=== PATIENT | male | born 1950 | race Caucasian/White ===

== ENCOUNTER 2020-06-23 23:08 | Emergency (ER) | payer OTHER ==
[~2020-06-23] VITALS: Ht 180.3 cm; Wt 97.7 kg
[2020-06-23 23:20] VITALS: BP 137/79
--- NOTE | 2020-06-23 23:24 | PHYS DOC ---
Past History Past Medical History: Anemia, CAD, Cancer, Diabetes, GERD, Kidney Stones, Renal Disease Past Medical History Hearing loss Past Surgical History: Other General Adult EDM: Chief Complaint: ABDOMINAL PAIN HPI: HPI: ".. .I am having really bad abdomen.. right here in the pit of my stomach. and right upper... .. I worried.. I do have metastatic melanoma and I am on special immune chemotherapy at ... On a special program to cause my body to attack the melanoma cells. .. It is freddie of experimental.. but I started hurting really bad tonight..." " They say I got some spots in my Liver.. I got follow up at coming this week for more chemo or immuno therapy and MRI... 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 Patient denies any intake of bad food. Patient denies any recent tarry stools. Patient has had history of have GERD and gastritis. Patient currently followed at oncology for treatment of metastatic melanoma on a experimental protocol. No history of trauma. No history of sick ill contacts. No recent travel outside the [place] area. Pt., follows with Dr. Nunez as a local primary. Review of Systems: Review of Systems: Constitutional: Denies fever or chills Eyes: Denies change in visual acuity HENT: Denies nasal congestion or sore throat Respiratory: Denies cough or shortness of breath Cardiovascular: Denies chest pain or edema GI: Complains of severe epigastric and right upper quadrant abdominal pain, nausea. Denies, vomiting, bloody stools or diarrhea : Denies dysuria Musculoskeletal: Denies back pain or joint pain Integument: Denies rash Neurologic: Denies headache, focal weakness or sensory changes Endocrine: Denies polyuria or polydipsia Lymphatic: Denies swollen glands Psychiatric: Denies depression or anxiety Family History: Family History: Noncontributory to presentation Current Medications: Current Meds: See nursing for home meds Allergies: Allergies: No known drug allergies Physical Exam: PE: Constitutional: in moderately acute distress, non-toxic appearance. Rate epigastric pain as severe. HENT: Normocephalic, atraumatic, bilateral external ears normal, oropharynx andrade st, no oral exudates, nose normal. [] Eyes: PERRLA, EOMI, conjunctiva normal, no discharge. Glasses Neck: Normal range of motion, no tenderness, supple, no stridor. [] Cardiovascular: Tachycardia heart rate regular rhythm, no murmur, PMI slightly to the left Lungs & Thorax: Bilateral breath sounds equal at apex on auscultation [] Abdomen: Bowel sounds decreased, soft, gastric and right upper quadrant tenderness, no masses, no pulsatile masses. Patient declined rectal exam at this time. Obese. Rebound to right upper quadrant. Surgical scars. Skin: Warm, dry, no erythema, no rash. [] Back: No tenderness, no CVA tenderness. [] Extremities: No tenderness, no cyanosis, no clubbing, ROM intact, no edema. No specific psoas sign. Neurologic: Alert and oriented X 3, normal motor function, normal sensory function, no focal deficits noted. [] Psychologic: Affect anxious, judgement normal, mood normal. [] EKG: EKG: My interpretation EKG shows a sinus rhythm at 96. Does have prolonged NM interval and abnormal P waves as well as a right bundle branch block. Does appear to be an abnormal EKG. But no findings of acute STEMI with contralateral changes. [] Radiology/Procedures: Radiology/Procedures: [[place] [address] IMAGING REPORT Signed PATIENT: NIKKI ELAM ACCOUNT: [id number] : 1950 LOCATION: ER AGE: 69 SEX: M EXAM STATUS: REG ER ORD. PHYSICIAN: TATA FROST MD REASON: pain PROCEDURE: ACUTE ABDOMEN SERIES EXAM: Frontal chest with two-view abdomen. HISTORY: Abdominal pain. COMPARISON: None. FINDINGS: The left hemidiaphragm is moderately elevated. There is mild left basilar atelectasis. There is no pneumothorax or clear pleural effusion. The heart is not enlarged. There is a mild to moderate thoracic dextroscoliosis. A calculus in the right renal lower pole measures 19 x 14 mm. There are no clear ureteral calculi. There are no distended small bowel loops. There is gas distally. Embolization coils are noted in the right upper quadrant. There are surgical clips in the right upper and lower quadrants and right hemipelvis. IMPRESSION: 1. 19 mm right renal calculus. No clear ureteral calculi. Electronically signed by: Sandra Mcgee MD (06/24/2020 12:46 AM) [facility] DICTATED AND SIGNED BY: MAXIMILIANO MCGEE MD DATE: 06/24/20 0046 CC: ANA MARIA NUNEZ MD; TATA FROST MD ~ ][address] [address] IMAGING REPORT Signed PATIENT: NIKKI ELAM ACCOUNT: [id number] : 1950 LOCATION: ER AGE: 69 SEX: M EXAM STATUS: REG ER ORD. PHYSICIAN: TATA FROST MD REASON: ?? PROCEDURE: CT ABD PELV W/ORAL&IV CONTRAST EXAM: CT ABDOMEN/PELVIS WITH CONTRAST. HISTORY: Abdominal pain. TECHNIQUE: Computed tomography of the abdomen and pelvis was performed after the intravenous administration of iodinated contrast. One or more of the following individualized dose reduction techniques were utilized for this examination: 1. Automated exposure control. 2. Adjustment of the mA and/or kV according to patient size. 3. Use of iterative reconstruction technique. COMPARISON: None. FINDINGS: Lung windows through the visualized portions of the bases reveal moderate elevation of the left hemidiaphragm with associated atelectasis. Low-attenuation to the right of the distal esophagus likely reflects a small amount of fluid in a small hiatal hernia. Bone windows reveal no suspicious lesions. A benign cyst in the right hepatic lobe measures 2.8 cm. The gallbladder is surgically absent. There are embolization coils in the gastroduodenal artery. The pancreas, adrenal glands and spleen are unremarkable. A calculus in the right renal lower pole measures 14 x 9 mm. Multiple additional bilateral renal calculi measure up to 4 mm in the right upper pole. There are multiple bilateral renal cysts measuring up to 4.9 cm at the right upper pole. There are no ureteral calculi. There are no pathologically enlarged lymph nodes. The prostate is moderately enlarged. There is no evidence of appendicitis. There is no small bowel obstruction. There is mild stranding about the proximal duodenum and colonic hepatic flexure. IMPRESSION: 1. Mild stranding about the proximal duodenum. Correlate for duodenitis or peptic ulcer disease. 2. Wall thickening of the distal esophagus. Correlate for esophagitis. 3. Bilateral renal calculi measure up to 14 mm on the right. Electronically signed by: Sandra Mcgee MD (06/24/2020 5:08 AM) [facility] DICTATED AND SIGNED BY: MAXIMILIANO MCGEE MD DATE: 06/24/20 9482 CC: ANA MARIA NUNEZ MD; TATA FROST MD ~ Heart Score: HEART Score for Chest Pain: HEART Score for Chest Pain Response (Comments) Value History Moderately Suspicious 1 ECG Nonspecific Repolarizatio 1 Age > 65 2 Troponin < Normal Limit 0 Total 4 Risk Factors: Risk Factors: DM, Current or recent (<one month) smoker, HTN, HLP, family history of CAD, obesity. Risk Scores: Score 0 - 3: 2.5% MACE over next 6 weeks - Discharge Home Score 4 - 6: 20.3% MACE over next 6 weeks - Admit for Clinical Observation Score 7 - 10: 72.7% MACE over next 6 weeks - Early Invasive Strategies Course & Med Decision Making: Course & Med Decision Making Pertinent Labs and Imaging studies reviewed. (See chart for details) Patient received fluid bolus as well as morphine for epigastric pain. Reviewed at length patient's x-rays and CT findings. At time of discharge patient reported marked relief of pain. Declined transfer to . Declined admission. Will start patient on Pepcid 20 mg twice a day. Must follow-up with primary as well as keeping follow-ups at oncology. Patient films were clouded to . Patient elected discharge home and exhibited UCAR capacity. Patient warned if he develops any tarry or dark stools must present to a hospital that has GI specialty availability in the event that he may need emergent EGD and possible treatment of a bleeding ulcer. Patient encouraged to remain on a clear fluid diet for the next 24 hours. Call oncology for possible earlier follow-up. Follow-up with Dr. Nunez. Patient continue his tramadol as needed for pain. Avoid any NSAIDs. Impression: 1. Abdomen pain epigastric and right upper quadrant 2. CT findings consistent with proximal duodenitis, gastritis and esophageal inflammation 3. History of metastatic melanoma cancer-currently on immunotherapy protocol at oncology 4. Anemia hemoglobin 11.6, with elevated segs at 88, MCV 105 5. Mild elevation in AST 55 ALT 77, alk phos of 131 6. Renal calculi [] Dragon Disclaimer: Dragon Disclaimer: This electronic medical record was generated, in whole or in part, using a voice recognition dictation system. Departure Departure: Disposition: 01 DC HOME SELF CARE/HOMELESS Condition: STABLE Referrals: ANA AMRIA NUNEZ MD (PCP) Scripts Famotidine (PEPCID) 20 Mg Tablet 20 MG PO BID for gastritis for 30 Days, #60 TAB Prov: ATTA FROST MD 06/24/20 Martina Disclaimer This chart was dictated in whole or in part using Voice Recognition software in a busy, high-work load, and often noisy Emergency Department environment. It may contain unintended and wholly unrecognized errors or omissions. Dragon Disclaimer This chart was dictated in whole or in part using Voice Recognition software in a busy, high-work load, and often noisy Emergency Department environment. It may contain unintended and wholly unrecognized errors or omissions. TATA FROST MD Jun 23, 2020 23:24
[2020-06-23] MEDS ORDERED: ONDANSETRON PF 4 MG/2 ML VIAL. IVP ONE (23:30)
[2020-06-23] MEDS ORDERED: IV RINGERS SOLUTION,LACTATED 1,000 ML IV SCH (23:30)
[2020-06-23] MEDS ORDERED: FAMOTIDINE 20 MG/2 ML VIAL IVP ONE (23:30)
[2020-06-24 00:10] LABS: BASO % 1 % (0-3); EOS % 0 % (0-3); HEMATOCRIT 35.9 % (39.0-53.0); HEMOGLOBIN 11.6 g/dL (13.0-17.5); LYMPH # 0.3 x10^3/uL (1.0-4.8); LYMPH % 5 % (24-48); MEAN CORPUSCULAR HEMOGLOBIN 34 pg (25-35); MEAN CORPUSCULAR HGB CONC 32 g/dL (31-37); MEAN CORPUSCULAR VOLUME 105 fL (79-100); MONO # 0.5 x10^3/uL (0.0-1.1); MONO % 7 % (0-9); NEUT # 6.4 x10^3uL (1.8-7.7); NEUT % 87 % (31-73); PLATELET COUNT 197 x10^3/uL (140-400); RED BLOOD COUNT 3.42 x10^6/uL (4.30-5.70); RED CELL DISTRIBUTION WIDTH 16.1 % (11.5-14.5); WHITE BLOOD COUNT 7.4 x10^3/uL (4.0-11.0)
[2020-06-24 00:20] LABS: CALCIUM 9.1 mg/dL (8.5-10.1); CREATININE 1.5 mg/dL (0.7-1.3); GFR 46.5; POTASSIUM 3.7 mmol/L (3.5-5.1)
[2020-06-24 00:25] LABS: ALBUMIN 3.2 g/dL (3.4-5.0); DIRECT BILIRUBIN 0.3 mg/dL (0.0-0.2); TOTAL BILIRUBIN 0.5 mg/dL (0.2-1.0)
[2020-06-24 00:38] LABS: % BANDS 1 % (0-9); % LYMPHS 4 % (24-48); % MONOS 7 % (0-10); % SEGS 88 % (35-66); PLT ESTIMATE ADEQUATE (ADEQUATE)
[2020-06-24 00:39] LABS: HYPOCHROMIA SLIGHT
--- NOTE | 2020-06-24 00:49 | RAD ---
EXAM: Frontal chest with two-view abdomen. HISTORY: Abdominal pain. COMPARISON: None. FINDINGS: The left hemidiaphragm is moderately elevated. There is mild left basilar atelectasis. There is no pneumothorax or clear pleural effusion. The heart is not enlarged. There is a mild to moderate thoracic dextroscoliosis. A calculus in the right renal lower pole measures 19 x 14 mm. There are no clear ureteral calculi. There are no distended small bowel loops. There is gas distally. Embolization coils are noted in the right upper quadrant. There are surgical clips in the right upper and lower quadrants and right hemipelvis. IMPRESSION: 1. 19 mm right renal calculus. No clear ureteral calculi. Electronically signed by: Sandra Mcgee MD (06/24/2020 12:46 AM) [facility]
[2020-06-24] MEDS ORDERED: ONDANSETRON PF 4 MG/2 ML VIAL. IVP ONE (01:30)
--- NOTE | 2020-06-24 02:00 | EKG ---
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
[2020-06-24] MEDS ORDERED: MORPHINE SULFATE 10 MG/ML SYRINGE. SQ ONE ×2 (02:45)
[2020-06-24] MEDS ORDERED: IOHEXOL 240 MG/ML 50ML VIAL. PO ONE (03:15)
[2020-06-24] MEDS ORDERED: IOHEXOL 300 MG/ML 75 ML VIAL. IV ONE (03:15)
[2020-06-24] MEDS ORDERED: CONTRAST GIVEN. MC PRN (03:15)
[2020-06-24 03:26] LABS: BARBITURATES NEG (NEG); BENZODIAZEPINES NEG (NEG); CANNABINOIDS NEG (NEG); COCAINE NEG (NEG); METHADONE NEG (NEG); OPIATES POS (NEG); PHENCYCLIDINE NEG (NEG)
[2020-06-24 03:31] LABS: BACTERIA,URINE 0 /HPF (0-FEW); BILIRUBIN,URINE MOD (NEG); CLARITY,URINE CLEAR; COLOR,URINE YELLOW; GLUCOSE,URINE NEG (NEG); NITRITE,URINE NEG (NEG); SQUAMOUS EPITHELIAL CELL,UR OCC /LPF; WBC,URINE RARE /HPF (0-4)
[2020-06-24 03:35] LABS: AMPHETAMINE/METHAMPHETAMINE NEG (NEG)
--- NOTE | 2020-06-24 05:10 | RAD ---
EXAM: CT ABDOMEN/PELVIS WITH CONTRAST. HISTORY: Abdominal pain. TECHNIQUE: Computed tomography of the abdomen and pelvis was performed after the intravenous administration of iodinated contrast. One or more of the following individualized dose reduction techniques were utilized for this examination: 1. Automated exposure control. 2. Adjustment of the mA and/or kV according to patient size. 3. Use of iterative reconstruction technique. COMPARISON: None. FINDINGS: Lung windows through the visualized portions of the bases reveal moderate elevation of the left hemidiaphragm with associated atelectasis. Low-attenuation to the right of the distal esophagus likely reflects a small amount of fluid in a small hiatal hernia. Bone windows reveal no suspicious lesions. A benign cyst in the right hepatic lobe measures 2.8 cm. The gallbladder is surgically absent. There are embolization coils in the gastroduodenal artery. The pancreas, adrenal glands and spleen are unremarkable. A calculus in the right renal lower pole measures 14 x 9 mm. Multiple additional bilateral renal calculi measure up to 4 mm in the right upper pole. There are multiple bilateral renal cysts measuring up to 4.9 cm at the right upper pole. There are no ureteral calculi. There are no pathologically enlarged lymph nodes. The prostate is moderately enlarged. There is no evidence of appendicitis. There is no small bowel obstruction. There is mild stranding about the proximal duodenum and colonic hepatic flexure. IMPRESSION: 1. Mild stranding about the proximal duodenum. Correlate for duodenitis or peptic ulcer disease. 2. Wall thickening of the distal esophagus. Correlate for esophagitis. 3. Bilateral renal calculi measure up to 14 mm on the right. Electronically signed by: Sandra Mcgee MD (06/24/2020 5:08 AM) [facility]
[2020-06-24] MEDS ORDERED: FAMO-63 PO (06:26)
== END 2020-06-24 06:39 | disposition home or self-care (01) ==
LOC: ER 23:08
DX: N20.0 Calculus of kidney (principal); R10.13 Epigastric pain; R10.11 Right upper quadrant pain; K29.70 Gastritis, unspecified, without bleeding; K29.80 Duodenitis without bleeding; D64.9 Anemia, unspecified; R79.89 Other specified abnormal findings of blood chemistry; R11.0 Nausea; K21.9 Gastro-esophageal reflux disease without esophagitis; I25.10 Atherosclerotic heart disease of native coronary artery without angina pectoris; E11.9 Type 2 diabetes mellitus without complications; C79.89 Secondary malignant neoplasm of other specified sites; Z87.442 Personal history of urinary calculi; Z85.9 Personal history of malignant neoplasm, unspecified
CPT/HCPCS: 36415; 74022; 74177; 80048; 80076; 80307; 81001; 82150; 82550; 83690; 84484; 85007; 85025; 85610; 85730; 93005; 96361; 96372; 96374; 96375; 96376; 99285; J2270; J2405; Q9966; Q9967; J3490; J7120

== ENCOUNTER 2021-07-05 23:18 | Emergency (ER) | payer OTHER, MEDICARE ==
[~2021-07-05] VITALS: Ht 177.8 cm; Wt 97.7 kg
[~2021-07-05 23:18] MED LIST: FAMO-63 PO
--- NOTE | 2021-07-05 23:20 | PHYS DOC ---
Past History Past Medical History: Anemia, CAD, Cancer, Diabetes, GERD, Kidney Stones, Renal Disease Additional Past Medical Histor: CLL Past Surgical History: Other Additional Past Surgical Histo: right lung resection Alcohol Use: None Adult General HPI HPI Patient is a 70-year-old male with a past medical history significant for metastatic melanoma to the liver who presents to the emergency department with a chief complaint of shortness of breath over the last couple of days and bilateral lower extremity swelling which seems worse than usual. States that his last chemotherapy session was 2 weeks ago but this weeks was held off due to some elevation in liver enzymes. Patient gets his care at . Denies headache, changes in vision, pain or trouble swallowing, neck pain, chest pain, abdominal pain but does have some abdominal bloating. Denies any nausea, vomiting, diarrhea, dysuria, hematuria or blood in the stool. Denies any recent travel, traumas or known ill contacts. Review of Systems Review of Systems Review of systems otherwise unremarkable except noted in HPI Allergies Allergies Allergies Coded Allergies Type Severity Reaction Last Updated Verified No Known Drug Allergies 06/24/20 No Physical Exam Physical Exam Constitutional: Well developed, well nourished, no acute distress, non-toxic appearance. [] HENT: Normocephalic, atraumatic, bilateral external ears normal, oropharynx moist, no oral exudates, nose normal. [] Eyes: PERRLA, EOMI, scleral icterus, no discharge. [] Neck: Normal range of motion, no tenderness, supple, no stridor. [] Cardiovascular: Sinus tachycardia Lungs & Thorax: Bilateral global scant rhonchi, with no respiratory distress Abdomen: soft, no tenderness, no masses, no pulsatile masses. [] Skin: Warm, dry, no erythema, no rash. [] Back: No tenderness, no CVA tenderness. [] Extremities: No tenderness, no cyanosis, no clubbing, ROM intact, no edema. [] Neurologic: Alert and oriented X 3, normal motor function, normal sensory function, able to sit, stand and walk without issue no focal deficits noted. [] Psychologic: Affect normal, judgement normal, mood normal. [] EKG EKG [] Radiology/Procedures Radiology/Procedures [] CTA CHEST_ABDOMEN_AND PELVIS Clinical Indication: SOB, cancer / Spl. Instructions: / History: Comparison: CT abdomen and pelvis with contrast, June 24, 2020. Technique: Helical CT of the chest was performed after the administration of 100 cc of Omnipaque 350 intravenous contrast according to PE protocol. Axial and coronal reconstructions were obtained. 3-D MIP images were constructed to better evaluate the pulmonary arteries. Helical CT imaging continued in the abdomen and pelvis. Findings: Pulmonary arteries are adequately opacified. There is no evidence of pulmonary embolism. There is no thoracic aortic dissection. The great vessels are normal caliber. There is right chest Port-A-Cath. Thyroid is symmetric. There is no adenopathy in the chest. Coronary artery disease. The cardiac size is normal, no pericardial effusion. There is severe elevation of the left hemidiaphragm. There is atelectasis or scarring in the bilateral lung bases. The central airways are patent. There is no pleural effusion. There is a groundglass opacity in the posterior left lower lobe measuring 1.7 cm. There are numerous hypodense lesions of the liver. These are new from prior study. There is hypertrophy of the left hepatic lobe. There are cirrhotic changes. There is moderate abdominal and pelvic ascites. Ascites is most apparent left subphrenic. Cholecystectomy. The spleen size is normal. The pancreas, adrenal glands, and abdominal aorta caliber are normal. There are nonobstructing right renal calculi, largest measures 11 mm. There are bilateral renal cysts that do not require follow-up. There is no hydronephrosis. The stomach is unremarkable. There is no dilated small bowel. No colon wall thickening is identified. There is no abdominal adenopathy. There is moderate anasarca. The urinary bladder contains a small amount of contrast inferiorly. There is no wall thickening. Prostate size upper limits of normal. No acute bone abnormality. IMPRESSION: 1. There is no pulmonary embolus. 2. Hepatic cirrhosis. There are numerous hypodense lesions of the liver, new from prior study. Metastatic disease or primary malignancy are not excluded. If diagnosis is not known, recommend MR abdomen with and without contrast. 3. Groundglass nodule in the posterior left lower lobe may be infectious/inflammatory. 4. Moderate abdominal ascites. 5. Moderate anasarca. 6. Nonobstructing right renal calculi. Heart Score C/O Chest Pain: No Risk Factors: Risk Factors: DM, Current or recent (<one month) smoker, HTN, HLP, family history of CAD, obesity. Risk Scores: Risk Factors: DM, Current or recent (<one month) smoker, HTN, HLP, family history of CAD, obesity. Course & Med Decision Making Course & Med Decision Making Patient is a 70-year-old male who presents to the emergency department with a chief complaint of shortness of breath for couple of days currently on chemotherapy for metastatic melanoma Vital signs notable for sinus tachycardia and hypothermia. Physical exam noted above. Patient placed on the monitor with IV access established x2. Started on IV fluid resuscitation. Started on antibiotics and blood cultures obtained given patient's immunosuppressed status and SIRS criteria. Possible site of infection with a groundglass opacity in the left lower lobe seen on CT. CT also notable for some anasarca, probable mets and liver disease. Laboratory analysis notable for hyponatremia, hyperkalemia, elevated anion gap and decreased bicarb, elevated BUN and creatinine, leukocytosis, macrocytic anemia, elevated bilirubin, elevated LFTs and alk phos. Given findings, patient critically ill with probable sepsis and possible site in the lung. Discussed all findings with family and recommended admission for continued evaluation and treatment. Family requested to be transferred to . Critical care time 60 minutes Dragon Disclaimer Dragon Disclaimer This electronic medical record was generated, in whole or in part, using a voice recognition dictation system. Departure Departure: Impression: Primary Impression: Sepsis Additional Impressions: Shortness of breath Hyponatremia Hyperkalemia Elevated LFTs Bilirubinemia Disposition: 02 [facility] Admitting Physician: Other Condition: STABLE Referrals: ANA MARIA GRESHAM MD (PCP) Problem Qualifiers ANGELIQUE YEAGER MD Jul 05, 2021 23:20
[2021-07-05] MEDS ORDERED: CEFEPIME HCL 2 GM in IV NORMAL SALINE 100ML 100 ML IV ONE (23:45)
[2021-07-05] MEDS ORDERED: CONTRAST GIVEN. MC PRN (23:45)
[2021-07-05] MEDS ORDERED: IOHEXOL 350 MG/ML 100 ML VIAL. IV ONE (23:45)
[2021-07-06] MEDS ORDERED: IV RINGERS SOLUTION,LACTATED 1,000 ML IV ONE (00:15)
[2021-07-06 00:51] LABS: BASO # 0.7 x10^3/uL (0.0-0.2); BASO % 2 % (0-3); EOS # 0.2 x10^3/uL (0.0-0.7); EOS % 1 % (0-3); HEMATOCRIT 24.9 % (39.0-53.0); HEMOGLOBIN 7.9 g/dL (13.0-17.5); LYMPH # 17.7 x10^3/uL (1.0-4.8); LYMPH % 49 % (24-48); MEAN CORPUSCULAR HEMOGLOBIN 34 pg (25-35); MEAN CORPUSCULAR HGB CONC 32 g/dL (31-37); MEAN CORPUSCULAR VOLUME 108 fL (79-100); MONO # 1.9 x10^3/uL (0.0-1.1); MONO % 5 % (0-9); NEUT # 15.4 x10^3uL (1.8-7.7); NEUT % 43 % (31-73); PLATELET COUNT 72 x10^3/uL (140-400); RED BLOOD COUNT 2.31 x10^6/uL (4.30-5.70); RED CELL DISTRIBUTION WIDTH 21.1 % (11.5-14.5)
[2021-07-06 01:10] LABS: % BANDS 1 % (0-9); % LYMPHS 53 % (24-48); % MONOS 2 % (0-10); % SEGS 44 % (35-66)
[2021-07-06 01:12] LABS: ANISOCYTOSIS SLIGHT; MICROCYTOSIS SLIGHT; PLT ESTIMATE DECREASED (ADEQUATE)
[2021-07-06 01:19] LABS: ALBUMIN 2.5 g/dL (3.4-5.0); CALCIUM 8.6 mg/dL (8.5-10.1); GFR 33.3; TOTAL BILIRUBIN 5.6 mg/dL (0.2-1.0); TOTAL PROTEIN 5.1 g/dL (6.4-8.2)
[2021-07-06 01:26] LABS: POTASSIUM 6.1 mmol/L (3.5-5.1)
[2021-07-06] MEDS ORDERED: FUROSEMIDE 40 MG/4 ML VIAL IVP ONE (01:30)
[2021-07-06] MEDS ORDERED: IV NORMAL SALINE 100ML 100 ML ONE (01:30)
[2021-07-06] MEDS ORDERED: CEFEPIME HCL 2 GM VIAL IV ONE (01:30)
[2021-07-06] MEDS ORDERED: MORPHINE SULFATE 4 MG/ML DISP.SYRIN. ONE (01:39)
[2021-07-06] MEDS ORDERED: MORPHINE SULFATE 4 MG/ML DISP.SYRIN. IV ONE (01:45)
[2021-07-06] MEDS ORDERED: ONDANSETRON PF 4 MG/2 ML VIAL. IVP ONE (01:45)
--- NOTE | 2021-07-06 02:03 | RAD ---
PQRS Compliance Statement: One or more of the following individualized dose reduction techniques were utilized for this examinat ion: 1. Automated exposure control 2. Adjustment of the mA and/or kV according to patient size 3. Use of iterative reconstruction technique CTA CHEST_ABDOMEN_AND PELVIS Clinical Indication: SOB, cancer / Spl. Instructions: / History: Comparison: CT abdomen and pelvis with contrast, June 24, 2020. Technique: Helical CT of the chest was performed after the administration of 100 cc of Omnipaque 350 intravenous contrast according to PE protocol. Axial and coronal reconstructions were obtained. 3- D MIP images were constructed to better evaluate the pulmonary arteries. Helical CT imaging continued in the abdomen and pelvis. Findings: Pulmonary arteries are adequately opacified. There is no evidence of pulmonary embolism. There is no thoracic aortic dissection. The great vessels are normal caliber. There is right chest Po rt-A-Cath. Thyroid is symmetric. There is no adenopathy in the chest. Coronary artery disease. The ca rdiac size is normal, no pericardial effusion. There is severe elevation of the left hemidiaphragm. There is atelectasis or scarring in the bilatera l lung bases. The central airways are patent. There is no pleural effusion. There is a groundglass op acity in the posterior left lower lobe measuring 1.7 cm. There are numerous hypodense lesions of the liver. These are new from prior study. There is hypertrop hy of the left hepatic lobe. There are cirrhotic changes. There is moderate abdominal and pelvic asci mery. Ascites is most apparent left subphrenic. Cholecystectomy. The spleen size is normal. The pancre as, adrenal glands, and abdominal aorta caliber are normal. There are nonobstructing right renal calc carina, largest measures 11 mm. There are bilateral renal cysts that do not require follow-up. There is no hydronephrosis. The stomach is unremarkable. There is no dilated small bowel. No colon wall thickening is identified. There is no abdominal adenopathy. There is moderate anasarca. The urinary bladder contains a small amount of contrast inferiorly. There is no wall thickening. Prostate size upper limits of normal. No acute bone abnormality. IMPRESSION: 1. There is no pulmonary embolus. 2. Hepatic cirrhosis. There are numerous hypodense lesions of the liver, new from prior study. Metas tatic disease or primary malignancy are not excluded. If diagnosis is not known, recommend MR abdomen with and without contrast. 3. Groundglass nodule in the posterior left lower lobe may be infectious/inflammatory. 4. Moderate abdominal ascites. 5. Moderate anasarca. 6. Nonobstructing right renal calculi. Electronically signed by: Gopi Conley MD (07/06/2021 2:01 AM) [facility]
[2021-07-06] MEDS ORDERED: CALCIUM GLUCONATE 1,000 MG/10 ML VIAL IV ONE (03:00)
[2021-07-06] MEDS ORDERED: SODIUM BICARB ADULT 8.4% 50 MEQ/50 ML DISP.SYRIN. IV ONE (03:00)
[2021-07-06] MEDS ORDERED: ALBUMIN HUMAN 25% 50 ML IV ONE (03:00)
[2021-07-06 03:05] LABS: BACTERIA,URINE 0 /HPF (0-FEW); BILIRUBIN,URINE NEG (NEG); CLARITY,URINE CLEAR; COLOR,URINE YELLOW; GLUCOSE,URINE NEG (NEG); NITRITE,URINE NEG (NEG); RBC,URINE 0 /HPF (0-2); SQUAMOUS EPITHELIAL CELL,UR OCC /LPF; UROBILINOGEN,URINE 0.2 mg/dL (0.2 mg/dL); WBC,URINE RARE /HPF (0-4)
[2021-07-06 03:50] VITALS: BP 102/61
--- NOTE | 2021-07-06 06:25 | EKG ---
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
[2021-07-06] MEDS ORDERED: CEFEPIME HCL 2 GM in IV NORMAL SALINE 100ML 100 ML IV SCH (07:30)
== END 2021-07-06 04:13 | disposition short-term general hospital (02) ==
LOC: ER 23:18
DX: A41.9 Sepsis, unspecified organism (principal); E87.1 Hypo-osmolality and hyponatremia; E87.5 Hyperkalemia; R79.89 Other specified abnormal findings of blood chemistry; E80.6 Other disorders of bilirubin metabolism; I25.10 Atherosclerotic heart disease of native coronary artery without angina pectoris; E11.9 Type 2 diabetes mellitus without complications; K21.9 Gastro-esophageal reflux disease without esophagitis; Z87.442 Personal history of urinary calculi; Z86.2 Personal history of diseases of the blood and blood-forming organs and certain disorders involving the immune mechanism
CPT/HCPCS: 36415; 71275; 74177; 80053; 81001; 82248; 82803; 83605; 83735; 84484; 85007; 85025; 85610; 85730; 87040; 93005; 96365; 96367; 96375; 99291; J0610; J0692; J1940; J2270; J2405; J7120; P9046